=== PATIENT | female | born 1935 | race Caucasian/White ===

== ENCOUNTER 2020-07-09 09:59 | Day surgery (SDC) | payer MEDICARE, OTHER ==
[~2020-07-09] VITALS: Ht 147.3 cm; Wt 56.0 kg
[~2020-07-09 09:59] MED LIST: ACET325T26 PO; AMLO-150 PO; ASCO100018 PO; ASPI81TA45 PO; ATOR40TA78 PO; CHLO25TA PO; CHOL2000 PO; CYCL1DRO OP; DOXE2.5C2 PO; EZET10TA70 PO; ISOS30TA8 PO; LEVO75TA PO; LOSA50TA14 PO; NITR0.4T28 SL; PROP10DR3 OP; RANI150C PO; UBID100C24 PO
[2020-07-09 11:52] VITALS: BP 162/55
[2020-07-09 11:53] LABS: BASOPHILS # (AUTO) 0.05 x10^3/uL (0-0.1); BASOPHILS % (AUTO) 1 % (0-1); EOSINOPHILS % (AUTO) 2 % (1-7); LYMPHOCYTES # (AUTO) 1.34 x10^3/uL (1-3.4); LYMPHOCYTES % (AUTO) 22 % (22-44); MD NO; MEAN CORPUSCULAR HEMOGLOBIN 28.8 pg (27.0-34.8); MEAN CORPUSCULAR HGB CONC 32.4 g/dL (32.4-35.8); MEAN PLATELET VOLUME 9.5 fL (7.4-10.4); MONOCYTES # (AUTO) 0.46 x10^3/uL (0.2-0.8); MONOCYTES % (AUTO) 7 % (2-9); NEUTROPHILS # (AUTO) 4.31 x10^3/uL (1.8-6.8); NEUTROPHILS % (AUTO) 69 % (42-75); PLATELET COUNT 176 x10^3/uL (130-400); RED BLOOD COUNT 4.14 x10^6/uL (3.82-5.3); RED CELL DISTRIBUTION WIDTH 14.8 % (9.6-15.2)
[2020-07-09 12:07] LABS: ANION GAP 9 mmol/L (5-15); CALCIUM 10.1 mg/dL (8.5-10.1); CHLORIDE 106 mmol/L (98-107); CREATININE 1.04 mg/dL (0.55-1.02)
[2020-07-09] MEDS ORDERED: BRIN8DRO OP (12:07)
[2020-07-09] MEDS ORDERED: LOSA50TA14 PO (12:09)
[2020-07-09] MEDS ORDERED: AREDS (12:10)
[2020-07-09] MEDS ORDERED: ALIR75PE SC (12:12)
[2020-07-09] MEDS ORDERED: FAMO10TA31 PO (12:13)
[2020-07-09] MEDS ORDERED: VERAPAMIL 2.5 MG/ML, 2ML ONE (12:59)
[2020-07-09] MEDS ORDERED: HEPARIN 1,000 UNITS/ML, 10ML ONE (12:59)
[2020-07-09] MEDS ORDERED: FENTANYL PF 100 MCG/2ML ONE (12:59)
[2020-07-09] MEDS ORDERED: MIDAZOLAM 1 MG/ML, 2ML ONE (12:59)
[2020-07-09] MEDS ORDERED: LIDOCAINE-MPF 1%, 5ML ONE (12:59)
[2020-07-09] MEDS ORDERED: SODIUM CHLORIDE 0.9% 1,000 ML IV SCH (15:00)
== END 2020-07-09 16:18 | disposition home or self-care (01) ==
LOC: CACL 09:59
PROVIDERS: ATTEND Internal Medicine Cardiovascular Disease
DX: I25.810 Atherosclerosis of coronary artery bypass graft(s) without angina pectoris (principal); I10 Essential (primary) hypertension; E78.2 Mixed hyperlipidemia; I35.0 Nonrheumatic aortic (valve) stenosis; Z79.899 Other long term (current) drug therapy; Z88.8 Allergy status to other drugs, medicaments and biological substances; Z88.5 Allergy status to narcotic agent; Z88.1 Allergy status to other antibiotic agents; Z88.2 Allergy status to sulfonamides; Z95.1 Presence of aortocoronary bypass graft; Z98.890 Other specified postprocedural states
CPT/HCPCS: 36415; 80048; 85025; 93459; 99156; 99157; C1769; C1894; J1644; J2250; J3010; Q9967